=== PATIENT | female | born 1945 | race Caucasian/White ===

== ENCOUNTER 2016-12-01 08:32 | Day surgery (SDC) | payer MEDICARE, OTHER ==
[2016-12-01] VITALS (17 sets, daily range): BP systolic 99–120; BP diastolic 58–66; PULSE 65–78; RESP 16–26
[~2016-12-01] VITALS: Ht 152.4 cm; Wt 66.0 kg
[~2016-12-01 08:32] MED LIST: ALLO300T2 PO; AMIO200T2 PO; ASPI-664 PO; CHOL50009 PO; CLOP75TA27 PO; FAMO20TA18 PO; LEVO300T PO; MAGN500T PO; METO-429 PO; TRAM50TA2 PO
[2016-12-01] MEDS ORDERED: VERAPAMIL 5 MG INJ ONE (09:04)
[2016-12-01] MEDS ORDERED: MIDAZOLAM 1 MG/ML 2 ML INJ ONE (09:04)
[2016-12-01] MEDS ORDERED: NITROGLYCERIN (IC) 100 MCG/ML INJ ONE (09:04)
[2016-12-01] MEDS ORDERED: IODIXANOL LOCM 100 ML BTL ONE (09:04)
[2016-12-01] MEDS ORDERED: HEPARIN 1000 UNITS/ML 10 ML INJ ONE (09:04)
[2016-12-01] MEDS ORDERED: FENTAnyl 50 MCG/ML VIAL ONE (09:04)
[2016-12-01] MEDS ORDERED: LIDOCAINE 1% (MDV) 20 ML INJ ONE (09:04)
[2016-12-01] MEDS ORDERED: IPRA12.93 INHALATION (09:43)
[2016-12-01] MEDS ORDERED: CARV3.12 PO (09:43)
[2016-12-01] MEDS ORDERED: ALBU8.5H3 INH (09:43)
[2016-12-01] MEDS ORDERED: MIDO5TAB19 PO (09:43)
[2016-12-01] MEDS ORDERED: ALLO100T PO (09:43)
[2016-12-01] MEDS ORDERED: LEVO88TA3 PO (09:43)
[2016-12-01] MEDS ORDERED: SOD CHLORIDE 0.9% 1,000 ML IV SCH (11:21)
[2016-12-01] MEDS ORDERED: ACETAMINOPHEN 325 MG TAB PO PRN (11:30)
[2016-12-01] MEDS ORDERED: HOLD all METFORMIN and METFORMIN CONTAINING medications for 48 hours post procedure. Chec XX ONE (11:30)
[2016-12-01] MEDS ORDERED: AL HYDROX/MG HYDROX/SIMETH 30 ML CUP PO PRN (11:30)
[2016-12-01] MEDS ORDERED: ONDANSETRON 4 MG INJ IV PRN (11:30)
[2016-12-01] MEDS ORDERED: SOD CHLORIDE 0.9% 500 ML ONE (11:39)
--- NOTE | 2016-12-01 12:03 | CARRPT ---
DATE OF PROCEDURE: 12/01/2016 TYPE OF PROCEDURE: 1. Left heart catheterization. 2. Coronary angiography. 3. Measurement of left ventricular end-diastolic pressure. 4. Monitored conscious sedation x45 minutes. ATTENDING PHYSICIAN: Carlos Michael MD REFERRING PHYSICIAN: Latrell Harrell MD INDICATION: Cardiomyopathy, decreased left ventricular ejection fraction, VT, positive stress test for anterior ischemia. BRIEF HISTORY AND HOSPITAL COURSE: Ms. Mikala Perez is a 71-year-old female with history of hyper tension, dyslipidemia, cardiomyopathy, decreased left ventricular ejection fraction, and chronic kid kayla disease, who initially presented with congestive heart failure exacerbation. The patient had a bout of ventricular tachycardia and subsequent cardiac stress test revealing positive anterior ische richelle. Given these findings, the patient was referred for and presents today in order to undergo left heart catheterization to assess for the possibility of significant obstructive coronary artery dise ase lending to symptoms of VT and positive stress test findings. DESCRIPTION OF PROCEDURE: After informed consent was obtained, the patient was brought the [facility] cardiac catheterization lab, where her right radial area was prepped and draped in the usual sterile fashion. Lidocaine 2% was infiltrated in the right radial area in order to ac hieve adequate anesthesia. With modified Seldinger technique, the radial artery was cannulated and a 6-Spanish arterial sheath was placed. A 6-Spanish JL3.5 catheter was used to cannulate the left alex n coronary ostium. With contrast injection, multiple views of the left coronary arterial system wer e obtained. The JL3.5 was removed over a guidewire and a JR4 was used in attempt to cannulate the r ight coronary arterial ostium, unsuccessfully. We then tried the Saúl right unsuccessfully and did an aortic root shot. It appeared that the right coronary artery came off very near the left cor onary cusp. Therefore, an AL1 was used to locate this vessel and it was cannulated after which with contrast injection, multiple views of this vessel was obtained. The AL1 was removed. LVEDP was me asured previously with the Saúl right and pulled back across the aortic valve to assess for sign ificant gradient, which there was not and removed. Subsequently, at this time, this completed the p rocedure. The patient's sheath was removed. TR band was applied. There were no noted complication s. FINDINGS: Coronary angiography: Left main 4 mm, no significant focal stenoses. Circumflex proxima lly is a 3.5 mm vessel and has a focal 20% to 30% stenosis in its mid portion. It bifurcates into a n obtuse marginal and circumflex continuation AV groove. The circumflex continuation AV groove has a focal 30% stenosis and just before the bifurcation with the obtuse marginal, there is additionally another 30% to 40% stenosis. The obtuse marginal itself is a 2.5 mm vessel and has no significant focal stenoses. The LAD proximally is a 3.5 mm vessel and has a diagonal coming off it shortly and then becomes 100% occluded shortly after the takeoff of the diagonal. You can see the LAD to come u p faintly mid to distally via [id number] collateral flow. The right coronary artery is an anomalo us vessel, it comes off superiorly, posteriorly near the left cusp, codominant vessel, gives off a s mall PDA a 2 mm vessel with no significant focal stenoses, and a posterolateral branch sub-2 mm with no significant focal stenoses. Measurement of left ventricular end-diastolic pressure of 15 to 17. No significant aortic stenosis by gradient. TOTAL FLUOROSCOPY: 8 minutes. TOTAL CONTRAST: 175 mL. IMPRESSION: 1. Single-vessel obstructive coronary artery disease involving 100% occlusion of the patient's left anterior descending with [id number] collateral flow. 2. Normal left heart filling pressures. 3. No significant aortic stenosis by gradient. 4. Anomalous right coronary artery. RECOMMENDATIONS: In light of procedure and findings at this time: 1. Would maximize medical management. 2. Aggressive risk factor reduction. 3. The patient will be admitted to same day surgery center for post-catheterization observation wit h probable transfer back to [facility] after observation. Dictated By: CARLOS GAUTAM/ROMEL Conf#: [id number] DID#: [id number] CC: LATRELL HARRELL MD;*EndCC*
== END 2016-12-01 16:07 | disposition home or self-care (01) ==
LOC: SDS 08:32
PROVIDERS: ATTEND Internal Medicine
DX: I25.10 Atherosclerotic heart disease of native coronary artery without angina pectoris (principal); I42.9 Cardiomyopathy, unspecified; R94.39 Abnormal result of other cardiovascular function study; J44.9 Chronic obstructive pulmonary disease, unspecified; Z95.810 Presence of automatic (implantable) cardiac defibrillator
CPT/HCPCS: 93458; C1769; C1887; J1644; J2250; J3010; J7040; Q9967

== ENCOUNTER 2017-02-15 19:26 | Emergency (ER) | END 2017-02-16 12:50 | disposition EXP | DX: A41.9 Sepsis, unspecified organism (principal); R65.21 Severe sepsis with septic shock; J96.01 Acute respiratory failure with hypoxia; J18.1 Lobar pneumonia, unspecified organism; J90 Pleural effusion, not elsewhere classified; J94.8 Other specified pleural conditions; N17.0 Acute kidney failure with tubular necrosis; E83.51 Hypocalcemia; I12.9 Hypertensive chronic kidney disease with stage 1 through stage 4 chronic kidney disease, or unspecified chronic kidney disease; N18.9 Chronic kidney disease, unspecified; E11.22 Type 2 diabetes mellitus with diabetic chronic kidney disease; J44.9 Chronic obstructive pulmonary disease, unspecified; I50.9 Heart failure, unspecified | CPT/HCPCS: 31500; 32551; 36415; 36556; 36600; 51702; 71010; 80053; 82803; 82962; 83605; 83690; 84484; 85025; 85610; 85730; 86850; 86900; 86901; 87040; 93005; 94002; 94003; 96365; 96366; 96368; 96375; 99291; J0610; J0692; J1265; J2060; J2250; J2270; J2370; J3370; J7030; J7060 ==